=== PATIENT | female | born 2000 | race Caucasian/White ===

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

== ENCOUNTER → 2022-01-03 17:02 | Outpatient (ROUT) | payer OTHER, SELFPAY ==
[2022-01-03 18:34] LABS: Urine N gonorrhoeae NOT DETECTED
[2022-01-03 18:38] LABS: Urine Chlamydia NOT DETECTED
== END ==
PROVIDERS: Family Provider Family Medicine; PCP Family Medicine; Visit Provider Family Medicine
DX: Z30.430 Encounter for insertion of intrauterine contraceptive device (principal)
CPT/HCPCS: 87491; 87591